=== PATIENT | female | born 1950 | race Caucasian/White ===

== ENCOUNTER → 2023-12-26 12:41 | Outpatient (REF) | payer OTHER, SELFPAY | LOC: HWRCS 12:41 | PROVIDERS: ATTENDING PHYSICIAN Nurse Practitioner | DX: I34.0 Nonrheumatic mitral (valve) insufficiency (principal) | CPT/HCPCS: 93306 ==

== ENCOUNTER → 2025-01-04 09:54 | Outpatient (REF) | payer OTHER, SELFPAY | LOC: HWWDC 09:54 | DX: M85.88 Other specified disorders of bone density and structure, other site (principal); Z12.31 Encounter for screening mammogram for malignant neoplasm of breast | CPT/HCPCS: 77063; 77067; 77080 ==

== ENCOUNTER 2025-02-14 06:21 | Day surgery (SDC) | payer OTHER, SELFPAY | END 2025-02-14 13:29 | disposition home or self-care (01) | LOC: GI 06:21 | PROVIDERS: ATTENDING PHYSICIAN Internal Medicine Gastroenterology | DX: Z12.11 Encounter for screening for malignant neoplasm of colon (principal); K57.30 Diverticulosis of large intestine without perforation or abscess without bleeding; K64.8 Other hemorrhoids; D12.3 Benign neoplasm of transverse colon; Z86.0100 Personal history of colon polyps, unspecified | CPT/HCPCS: 45385; 88305 ==